=== PATIENT | female | born 1980 | race Asian ===

== ENCOUNTER 2016-12-01 18:55 | Emergency (ER) | payer MEDICAID ==
[~2016-12-01] VITALS: Ht 165.1 cm; Wt 70.3 kg
[2016-12-01] MEDS ORDERED: HYDROcodone-ACET 10/325MG TAB PO ONE (20:45)
[2016-12-01 20:50] VITALS: BP 127/66
== END 2016-12-01 20:53 | disposition home or self-care (01) ==
LOC: EDBD 18:55 → ER 18:58
DX: S70.01XA Contusion of right hip, initial encounter (principal); W19.XXXA Unspecified fall, initial encounter; Y93.89 Activity, other specified; Y99.8 Other external cause status; Y92.89 Other specified places as the place of occurrence of the external cause
CPT/HCPCS: 73700